=== PATIENT | male | born 1965 | race Native Hawaiian/Other Pacific Islander ===

== ENCOUNTER 2019-07-06 03:13 | Emergency (ER) | payer BC ==
[~2019-07-06] VITALS: Ht 162.6 cm; Wt 72.6 kg
[~2019-07-06 03:13] MED LIST: AMLO2.5T4 PO; ASPI-1169 PO; METF500T20 PO
[2019-07-06 03:34] VITALS: BP 157/92
--- NOTE | 2019-07-06 03:39 | NUR ---
PT BIBS. FELT DIZZY, LIGHT HEADED AND PALPITATIONS @ 0140. "DIDN'T PASS OUT" PER PATIENT. PT AAOX4, RR EVEN AND UNLABORED ON RA W/ NAD NOTED. PT CONNECTED TO THE MONITOR AND POX
--- NOTE | 2019-07-06 05:12 | NUR ---
Patient discharged to home in stable condition. Written and verbal after care instructions given. Patient verbalizes understanding of instruction.
== END 2019-07-06 05:12 | disposition home or self-care (01) ==
LOC: ER 03:14
DX: R42 Dizziness and giddiness (principal); I10 Essential (primary) hypertension; E11.9 Type 2 diabetes mellitus without complications; J45.909 Unspecified asthma, uncomplicated; Z98.890 Other specified postprocedural states; Z79.82 Long term (current) use of aspirin; Z79.899 Other long term (current) drug therapy